=== PATIENT | female | born 1980 | race Caucasian/White ===

== ENCOUNTER 2017-05-24 05:36 | Inpatient (IN) | payer BC ==
--- NOTE | 2017-05-22 06:31 | PCM.LDHP ---
L&D History of Present Illness - General Date of Service: 05/22/17 Admit Problem/Dx: Admission Diagnosis/Problem Admission Diagnosis/Problem 05/22/17 06:20 36-year-old 2 para 1001 white female with intrauterine at 40-1 /7 weeks gestational age on day of admission admitted for elective repeat section. 05/22/17 06:20 Source of Information: Patient History Limitations: Reports: No Limitations - History of Present Illness Introduction:: History of present illness: Patient is a 36-year-old 2 para 1001 white female who is admitted for elective repeat section. Patient had a previous section for failure to progress in 2012. The procedure of repeat section, its risks, benefits, alternatives of care are discussed in detail the patient. She appears to understand and wishes to proceed. 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 Last menstrual period was fairly definite at 08/12/2016 onset. Her ultrasound dating starting with first ultrasound at 11- 1/7 weeks and again on 01/13/2017 at 22-2/7 weeks is consistent with her last menstrual period dating for final JET of 05/23/2017. Patient had menarche at age 14, cycles every 32-34 days. Previous resulted in a primary section performed on 11/30/2012 at 41 weeks gestational age after 24 hours of labor with delivery of a 7 lbs. 5 oz. male named Julian. course was relatively unremarkable. She plans to breast feed. She declined genetic testing. She had an inverted depression screening score of 0 out of 30 on 12/22/2016. Her group B strep screen was negative. All patient plan for repeat section throughout the entire . course: First visit occurred on 11/06/2016 at 10-3/7 weeks gestational age. She had a relatively unremarkable course with normal fundal height growth. Her weight gain was from 199.2 pounds 2 230 pounds for 30.8 pound weight gain. Her vital signs are stable throughout the . Laboratory testing in consisted of a blood type which was A+. Antibody screen was negative. Her initial labs showed a hemoglobin of 12.7 and platelets of 274,000. Her Pap smear was normal. She is rubella immune. RPR is nonreactive. Hepatitis B surface antigen and HIV assays were both negative. Chlamydia and gonorrhea assays both negative. Trimester laboratory testing showed a hemoglobin of 10.2 at which time patient was started on additional ferrous sulfate supplementation in the form of 325 mg tablets twice a day. Her platelet count was 249,000 and her 1 hour GTT was 111. Her group B strep screen third trimester was negative. Allergies: None Medications: 1. Ferrous sulfate 325 mg twice a day 2. Folic acid 800 g 1 daily 3. Calcium 500 mg 2 tablets daily 4. vitamins 1 tablet daily Past medical history: Infertility with use of Clomid and metformin in the past. 2. Eczema Past surgical history: 1. 2012 for failure to progress. Family history: Mother the baby's paternal cousin has Down syndrome. Patient's mom and dad are alive and well. Mom does have glaucoma but is well controlled. 2 sisters alive and well. Maternal grandmother secondary to age. Maternal grandfather also secondary to old age. Paternal grandmother secondary to kidney failure. Paternal grandfather secondary to intestinal cancer. No , clotting, bleeding or anesthesia problems noted in the family. Social history: Patient is . is Jamey Mckeon. She works at [employer]. She is a college graduate. They live in [place]. Significant alcohol, drugs or tobacco Review of systems: In general patient has no concerns. She is late and has normal changes reported Skin:eczema throughout the worsening in recent days. Lungs/respiratory: Negative Cardiovascular: No exercise intolerance or chest pain Breasts: Changes associated with only GI: Normal bowel activity : Changes so since Muscoskeletal: Negative other than occasional swelling in lower extremities Neurologic: Normal Physical exam: Evaluation in clinic weight was 230 pounds blood pressure 112/73 heart rate was 133. Her first weight was 199.2 with body mass index of 35.1. Height is 5 feet 3. In general patient is a well-developed, well-nourished, pleasant female in no acute distress. Skin is warm and dry without lesions other than the eczema reported above. HEENT, neck and back are within normal limits. Cardiovascular exam shows regular rate and rhythm without murmurs. Lungs are clear with good breath sounds in all lung soto. Breast exam is deferred. Abdomen is protuberant with with fundal height of 40 cm, baby in vertex presentation. Cervical exam is not performed on last evaluation. Extremities and neurological exam are grossly within normal limits. - Related Data Allergies/Adverse Reactions: Allergies Allergy/AdvReac Type Severity Reaction Status Date / Time No Known Allergies Allergy Verified 08/24/16 11:57 H&P Review of Systems - Review of Systems: Review Of Systems: See Below L&D Exam - Exam Exam: See Below Problem List Initiated/Reviewed/Updated: Yes Assessment/Plan Comment:: Assessment: 1. Term intrauterine at 40-1/7 weeks gestational age upon admission for elective repeat section. For done for failure to progress 2. Only risk factors for the and for surgery is history of previous section and increased weight. 3. Patient plans to breast-feed 4. Patient is group B strep negative Plan: 1. Repeat lower uterine segment transverse section through Pfannenstiel skin incision under spinal block scheduled for 05/24/2017 at 0730 hrs. The procedure, risks, benefits, follow-up of care and alternatives of care discussed in detail with patient. She appears to understand, and wishes to proceed and signed the consent. 2. DVT prophylaxis with SCDs 3. Ancef for infection prophylaxis 4. Routine preoperative laboratory testing consisting of CBC, urinalysis, type and screen.
[~2017-05-24 05:36] MED LIST: Lactated Ringers 1,000 ML IV SCH; Sodium Chloride 0.9% 10 ML Syringe FLUSH PRN
[2017-05-24] MEDS ORDERED: Metoclopramide 10 MG/2 ML SDV IVPUSH ONE (06:00)
[2017-05-24] MEDS ORDERED: Citric Acid/Sodium Citrate Solution 30 ML Cup PO ONE (06:00)
[2017-05-24] MEDS ORDERED: Bupivacaine 0.5% 30 ML SDV ONE (06:48)
[2017-05-24] MEDS ORDERED: Morphine PF 10 MG/10 ML SDV ONE (06:54)
[2017-05-24] MEDS ORDERED: Lactated Ringers 1,000 ML ONE ×2 (06:54→08:45)
[2017-05-24] MEDS ORDERED: Oxytocin 10 Units/1 ML SDV ONE (06:54)
[2017-05-24] MEDS ORDERED: ceFAZolin 1 GM Vial ONE (07:00)
[2017-05-24] MEDS ORDERED: Ondansetron 4 MG/2 ML SDV ONE (07:00)
--- NOTE | 2017-05-24 07:27 | PCM.PREANE ---
Preanesthetic Assessment - Anesthesia/Transfusion/Family Hx Anesthesia History: Prior Anesthesia Without Reaction Family History of Anesthesia Reaction: No - Review of Systems General: No Symptoms Pulmonary: No Symptoms Cardiovascular: No Symptoms Gastrointestinal: No Symptoms Neurological: No Symptoms Other: Reports: None - Physical Assessment NPO Status Date: 05/23/16 NPO Status Time: 17:30 O2 Sat by Pulse Oximetry: 97 Respiratory Rate: 16 Vital Signs: Last Vital Signs Temp 36.8 C 05/24/17 01:26 Pulse 107 H 05/24/17 01:26 Resp 16 05/24/17 01:26 BP 121/71 05/24/17 01:26 Pulse Ox 97 05/24/17 01:26 ASA Class: 2 Mental Status: Alert & Oriented x3 Airway Class: Mallampati = 1 Dentition: Reports: Normal Dentition Thyro-Mental Finger Breadths: 3 Mouth Opening Finger Breadths: 3 ROM/Head Extension: Full Lungs: Clear to Auscultation, Normal Respiratory Effort Cardiovascular: Regular Rate, Regular Rhythm - Lab Values: Reviewed Plt 229 - Allergies Allergies/Adverse Reactions: Allergies Allergy/AdvReac Type Severity Reaction Status Date / Time No Known Allergies Allergy Verified 08/24/16 11:57 - Anesthesia Plan Pre-Op Medication Ordered: Antacids - Acknowledgements Anesthesia Type Planned: Spinal Pt an Appropriate Candidate for the Planned Anesthesia: Yes Alternatives and Risks of Anesthesia Discussed w Pt/Guardian: Yes Pt/Guardian Understands and Agrees with Anesthesia Plan: Yes PreAnesthesia Questionnaire Genitourinary History: Reports: UTI, Recurrent, Other (See Below) Other Genitourinary History: on macrobid OPERATIONS ASST History: Reports: Polycystic Ovaries, Other (See Below) Other OB/BYN History: hx of metformin and clomid Psychiatric History: Reports: Depression, Other (See Below) Other Psychiatric History: WITH LAST PREG Hematologic History: Reports: Anemia Dermatologic History: Reports: Eczema, Other (See Below) Other Dermatologic History: has rash to breast area - CURRENT (IN HOUSE) MEDS Current Meds: Current Medications Cefazolin Sodium/Dextrose 2 gm (/ Premix) 50 mls @ 100 mls/hr IV ONETIME ONE Stop: 05/24/17 07:59 Lactated Ringer's (Ringers, Lactated) 1,000 mls @ 125 mls/hr IV ASDIRECTED JEREMIAH Last Admin: 05/24/17 07:13 Dose: 125 mls/hr Sodium Chloride (Saline Flush) 10 ml FLUSH ASDIRECTED PRN PRN Reason: Keep Vein Open Discontinued Medications Bupivacaine HCl (Marcaine 0.5%) Confirm Administered Dose 30 ml .ROUTE .STK-MED ONE Stop: 05/24/17 06:49 Cefazolin Sodium (Ancef) Confirm Administered Dose 2 gm .ROUTE .STK-MED ONE Stop: 05/24/17 07:01 Citric Acid/Sodium Citrate (Bicitra Solution) 30 ml PO ONETIME ONE Stop: 05/24/17 06:01 Last Admin: 05/24/17 07:13 Dose: 30 ml Lactated Ringer's (Ringers, Lactated) Confirm Administered Dose 1,000 mls @ as directed .ROUTE .[facility]-MED ONE Stop: 05/24/17 06:55 Metoclopramide HCl (Reglan) 10 mg IVPUSH ONETIME ONE Stop: 05/24/17 06:01 Last Admin: 05/24/17 07:14 Dose: 10 mg Morphine Sulfate (Duramorph Pf) Confirm Administered Dose 10 mg .ROUTE .STK-MED ONE Stop: 05/24/17 06:55 Ondansetron HCl (Zofran) Confirm Administered Dose 4 mg .ROUTE .ST-MED ONE Stop: 05/24/17 07:01 Oxytocin (Pitocin) Confirm Administered Dose 20 unit .ROUTE .STK-MED ONE Stop: 05/24/17 06:55
[2017-05-24] MEDS ORDERED: ceFAZolin 2 GM in Premix Bag 1 BAG IV ONE (07:30)
[2017-05-24] MEDS ORDERED: Ondansetron 4 MG/2 ML SDV IVPUSH PRN (08:36)
[2017-05-24] MEDS ORDERED: ePHEDrine 50 MG/ML SDV IVPUSH PRN ×2 (08:36→08:40)
[2017-05-24] MEDS ORDERED: diphenhydrAMINE 50 MG/ML SDV IVPUSH PRN ×2 (08:36→08:40)
[2017-05-24] MEDS ORDERED: Lanolin 100% Cream 7 GM Tube TOP PRN (08:40)
[2017-05-24] MEDS ORDERED: Ondansetron 4 MG/2 ML SDV IV PRN (08:40)
[2017-05-24] MEDS ORDERED: Naloxone 0.4 MG/ML SDV IVPUSH PRN (08:40)
[2017-05-24] MEDS ORDERED: Docusate Sodium 100 MG Cap PO PRN (08:40)
[2017-05-24] MEDS ORDERED: Ketorolac 30 MG/ML SDV ONE (08:45)
--- NOTE | 2017-05-24 08:53 | PCM.POSTAN ---
POST ANESTHESIA ASSESSMENT - MENTAL STATUS Mental Status: Alert, Oriented - VITAL SIGNS Pulse Rate: 80 SaO2: 100 Resp Rate: 18 Blood Pressure: 102/64 Temperature: 97.9 C - RESPIRATORY Respiratory Status: Respiratory Rate WNL, Airway Patent, O2 Saturation Stable - CARDIOVASCULAR CV Status: Pulse Rate WNL, Blood Pressure Stable - GASTROINTESTINAL GI Status: No Symptoms - PAIN Pain Score: 0 - POST OP HYDRATION Hydration Status: Adequate & Stable
[2017-05-24] MEDS ORDERED: Nitrofurantoin Monohydrate/Macrocrystalline 100 MG Cap PO SCH (09:00)
[2017-05-24] MEDS ORDERED: diphenhydrAMINE/Zinc Acetate 1% Crm 28.3 GM Tube TOP PRN (10:00)
[2017-05-24] MEDS ORDERED: Calamine/Zinc Oxide Lotion 118 ML Bottle TOP PRN (10:00)
[2017-05-24] MEDS: NITROFURANTOIN 100 MG PO SCH ×2 (10:52→21:57)
[2017-05-24] MEDS: Simethicone 80 MG Tab.Chew PO SCH ×4 (10:53→21:56)
[2017-05-24] MEDS: Prenatal Multivitamin with Calcium/Folic Acid/Iron Tab PO SCH (10:53)
[2017-05-24] MEDS ORDERED: Lactated Ringers 1,000 ML IV SCH (11:45)
[2017-05-24] MEDS ORDERED: Fluconazole 150 MG Tab PO ONE (12:00)
[2017-05-24] MEDS: Ibuprofen 800 MG Tab PO SCH (15:05)
[2017-05-24] MEDS: Acetaminophen/oxyCODONE 325-5 MG Tab PO PRN (20:35)
[2017-05-25] MEDS: Ibuprofen 800 MG Tab PO SCH ×4 (00:17→22:52)
[2017-05-25] MEDS: Acetaminophen/oxyCODONE 325-5 MG Tab PO PRN ×3 (05:43→20:57)
--- NOTE | 2017-05-25 08:52 | PCM48HPAN ---
Post Anesthesia Note - EVALUATION WITHIN 48HRS OF ANESTHETIC Vital Signs in Normal Range: Yes Patient Participated in Evaluation: Yes Respiratory Function Stable: Yes Airway Patent: Yes Cardiovascular Function Stable: Yes Hydration Status Stable: Yes Pain Control Satisfactory: Yes Nausea and Vomiting Control Satisfactory: Yes Mental Status Recovered: Yes - COMMENTS/OBSERVATIONS Free Text/Narrative:: Patient denied any headache, residual numbness/tingling to lower extremities, or back pain.
[2017-05-25] MEDS: Simethicone 80 MG Tab.Chew PO SCH ×4 (09:42→22:52)
[2017-05-25] MEDS: Prenatal Multivitamin with Calcium/Folic Acid/Iron Tab PO SCH (09:42)
[2017-05-25] MEDS: NITROFURANTOIN 100 MG PO SCH ×2 (09:42→21:03)
--- NOTE | 2017-05-25 10:47 | PCM.SN ---
- Free Text/Narrative Note: Postoperative day 2: Patient is doing well. Pain is minimal. She is ambulating well, has voided without concerns and is breast-feeding without problems. Vital signs are stable, patient is afebrile. CBC is pending. Lungs are clear with good breath sounds in all lung soto. Cardiovascular exam shows regular rate and rhythm without murmurs. Abdomen is flat, soft and uterus at the umbilicus. Positive bowel sounds are noted. Incision appears dry and intact with PRINE0 in place. Legs are nontender with only minimal edema bilateral lower extremities. Assessment: Postoperative day one doing well. Plan: Await CBC results. Routine postoperative care. Possibly home on second postoperative day.
--- NOTE | 2017-05-26 06:15 | PCM.OPNOTE ---
- General Post-Op/Procedure Note Date of Surgery/Procedure: 05/26/17 Operative Procedure(s): Repeat lower uterine segment transverse section through Pfannenstiel skin incision Findings: Tubes and ovaries were consistent with a term . No significant scarring was noted. Baby is in a vertex presentation. Amniotic fluid was clear. Placenta appeared intact and complete and was expressed in a Debbie presentation. Umbilical cord had 3 vessels. Cervix was dilated to approximately 2 cm-adequate to allow egress of blood. All abnormalities were noted. An segment was approximately 5 mm thick. Pre Op Diagnosis: Term intrauterine at 40 weeks, history of previous section with desire for repeat section Post-Op Diagnosis: Same with delivery of a viable, 3487 g (7 pound 11.0) female with Apgars of 9 and 9, a length of 20.5 inches born at 0804 hrs. on 05/24. Anesthesia Technique: Local, Spinal Primary Surgeon: Alvarez Samuels Secondary Surgeon: Hussain Caceres Anesthesia Provider: maribel Complications: None Condition: Good Free Text/Narrative:: Intake & Output 05/25/17 05/25/17 05/26/17 14:59 22:59 06:59 Intake Total 840 Output Total 350 Balance 490 Procedure:Patient was transferred the room and placed in a sitting position. Spinal anesthesia was administered. After confirmation of adequate anesthesia patient was placed in a supine position with a wedge under her right side to facilitate left lateral positioning. The patient was prepped and draped in usual fashion after Calles catheter was already placed . The anesthetic was checked and found to be adequate. The Pfannenstiel skin incision was then made through the old Pfannenstiel incision scar and carried down to skin subcutaneous and fascial layers. The fascia was then undermined superiorly and inferiorly to allow for adequate operating room the recti muscles midline and preperitoneal fat was bluntly dissected. Peritoneal cavity was entered longitudinally. The vesicouterine peritoneum was then incised transversely and bladder flap was developed. Myometrium was incised transversely to the level of the amniotic sac. This incision was extended bilaterally in a blunt fashion. The amniotic sac was then ruptured resulting clear amniotic fluid. A hand is placed and low uterine segment and the baby's head was brought forth through the incision. The baby was completely delivered using fundal pressure in a routine fashion. The nose and mouth were bulb suctioned. Bays cord was clamped x2 cut and baby was handed off to attending blade changer Dr Duggan. Placenta was expressed after cord blood was obtained. Uterus was then exteriorized to allow for easier closure. The cervix was assessed and found to be dilated adequately to allow egress of blood. The uterus was closed in 2 layers. The first layer a running locked suture of 0 Monocryl, the second layer a running locked vertical mattress suture of 0 Monocryl. [id number] suture was placed at the left incision to control 1 bleeder. Hemostasis confirmed at this time. Sponge instrument needle counts are correct. The uterus was returned to the abdominal cavity and lateral gutters were cleared of blood. Once again sponge needle counts are correct. The anterior abdominal wall was closed with a #1 PDS suture from angle to angle. The subcutaneous area was found to be free of any bleeders. Skin was closed with a running subcuticular stitch of 3-0 Monocryl in a vertical mattress suture fashion using a Catrachito needle. Prineo mesh/glue was then applied to further approximate the incision. It should be noted that patient received 2 g of Ancef preoperatively for infection prophylaxis and had Pitocin infused after delivery of the placenta to facilitate uterine contraction. She also had sequential compression stockings in place for DVT prophylaxis. Patient was discharged from the operating room in satisfactory condition.
--- NOTE | 2017-05-26 06:21 | PCM.DCSUM1 ---
Discharge Summary - Hospital Course Free Text/Narrative:: Magalys is a 36-year-old 2 now para 2002 white female who was admitted on 05/24/2017 for elective repeat section. Please see admission history and physical for details. Patient delivered a viable, benites, 3487 g (7 pounds 11.0 ounce 6), 20.5 inch long female infant at 0804 hrs. on 05/24/2017. At Apgars of 9 and 9. Postoperatively pain was controlled with Duramorph through spinal block along with ibuprofen and after 24 hours reset was added. She made good bowel, bladder and ambulatory recovery. She is nursing without problems. She has minimal lochia and is voiding well. Vital signs and stable. Follow-up CBC has shown a decrease in hemoglobin to 8.6. Estimated blood loss at time of surgery was 750 mL. He is doing well with this however and is not have any clinical symptoms of anemia. The patient is desiring at this time to be discharged home. - Discharge Data Discharge Date: 05/26/17 Discharge Disposition: Home, Self-Care 01 Condition: Good - Patient Summary/Data Operative Procedure(s) Performed: Repeat lower uterine segment transverse section through Pfannenstiel skin incision - Patient Instructions Diet: Regular Diet as Tolerated (Nursing diet with increase calories and calcium ) Activity: As Tolerated (No lifting greater than 15 pounds, taking a bath or driving a car 1 week, thereafter made bays, drive or morning and 15 pounds.) Driving: Do Not Drive Wound/Incision Care: Keep Operative Site/Wound Site Clean and Dry (Remove incision mesh in 2 weeks by using Vaseline or petroleum jelly) Notify Provider of: Fever, Increased Pain, Swelling and Redness, Drainage, Nausea and/or Vomiting - Discharge Plan Prescriptions/Med Rec: Fluconazole [Diflucan] 150 mg PO ONETIME #1 tablet Home Medications: Home Meds Calcium Carbonate [Calcium] 600 mg PO DAILY 05/24/17 [History] Ferrous Sulfate [Iron] 325 mg PO DAILY 05/24/17 [History] Nitrofurantoin Edwards/Macrocryst [Macrobid] 100 mg PO BID 05/24/17 [History] PNV95/Ferrous Fumarate/FA [ Tablet] 1 each PO DAILY 05/24/17 [History] Acetaminophen/oxyCODONE [Percocet 325-5 MG] 2 tab PO Q4H PRN #30 tablet [Rx] Fluconazole [Diflucan] 150 mg PO ONETIME #1 tablet 05/26/17 [Rx] Ibuprofen [IJD: Ibuprofen] 800 mg PO Q8H tablet 05/26/17 [Rx] Referrals: Alvarez Samuels MD [Physician] - [facility] - Discharge Summary/Plan Comment DC Time >30 min.: No Discharge Summary/Plan Comment: Discharge instructions: 1. Discharge home, activity and follow-up discussed with patient 2. Regular, high fiber, nursing diet with increased calcium and calories as recommended 3. Medications per home medication was printed, discussed with them given to the patient. 4. Cautions given concern increased pain, bleeding, temperature, signs/symptoms of DVT/PE. [facility]. [facility] Diagnosis: 40 week , history of previous section with desire for repeat section-delivered by section Condition: Good - Patient Data Vitals - Most Recent: Last Vital Signs Temp 36.2 C 05/25/17 20:00 Pulse 100 05/25/17 20:00 Resp 15 05/25/17 20:00 BP 128/86 05/25/17 20:00 Pulse Ox 97 05/25/17 20:00 Weight - Most Recent: 102.965 kg I&O - Last 24 hours: Intake & Output 05/25/17 05/25/17 05/26/17 14:59 22:59 06:59 Intake Total 840 Output Total 350 Balance 490 Lab Results - Last 24 hrs: Laboratory Results - last 24 hr 05/25/17 Range/Units 05:30 Manual Slide Review Abnormal smear Med Orders - Current: Current Medications Calamine/Zinc Oxide (Calamine Lotion) 0 ml TOP Q4H PRN PRN Reason: Rash Diphenhydramine HCl (Benadryl) 25 mg IVPUSH Q6H PRN PRN Reason: Pruritis Diphenhydramine HCl (Benadryl) 25 mg IVPUSH Q6H PRN PRN Reason: Itching or Nausea Docusate Sodium (Colace) 100 mg PO Q12H PRN PRN Reason: Constipation Emollient Ointment (Lansinoh Hpa) 0 gm TOP ASDIRECTED PRN PRN Reason: Sore Nipples Ephedrine Sulfate (Ephedrine Sulfate) 5 mg IVPUSH ASDIRECTED PRN PRN Reason: Hypotension Ephedrine Sulfate (Ephedrine Sulfate) 5 mg IVPUSH SEECOMMENT PRN PRN Reason: Other Fluconazole (Diflucan) 150 mg PO ONETIME ONE Stop: 05/27/17 09:01 Lactated Ringer's (Ringers, Lactated) 1,000 mls @ 125 mls/hr IV ASDIRECTED [facility] Last Admin: 05/24/17 11:54 Dose: 125 mls/hr Ibuprofen (Motrin) 800 mg PO Q8H [facility] Last Admin: 05/25/17 22:52 Dose: 800 mg Naloxone HCl (Narcan) 0.1 mg IVPUSH SEECOMMENT PRN PRN Reason: Respiratory Depression Nitrofurantoin Macrocrystals (Macrobid) 0 mg PO BID [facility] Last Admin: 05/25/17 21:03 Dose: 100 mg Ondansetron HCl (Zofran) 4 mg IVPUSH ONETIME PRN PRN Reason: Nausea/Vomiting Ondansetron HCl (Zofran) 4 mg IV Q4H PRN PRN Reason: Nausea/Vomiting Oxycodone/Acetaminophen (Percocet 325-5 Mg) 2 tab PO Q4H PRN PRN Reason: Pain (moderate 4-6) Last Admin: 05/25/17 20:57 Dose: 1 tab Prenat Multivit/Canal Boat Operator/Iron/Folic Ac ( Plus Iron) 1 each PO DAILY [facility] Last Admin: 05/25/17 09:42 Dose: 1 each Simethicone (Simethicone) 80 mg PO PCBED [facility] Last Admin: 05/25/17 22:52 Dose: 80 mg Zinc Acetate/Diphenhydramine (Benadryl Itch Stopping Crm) 0 gm TOP Q4H PRN PRN Reason: Rash Discontinued Medications Bupivacaine HCl (Marcaine 0.5%) Confirm Administered Dose 30 ml .ROUTE .STK-MED ONE Stop: 05/24/17 06:49 Last Admin: 05/24/17 08:00 Dose: 20 ml Cefazolin Sodium (Ancef) Confirm Administered Dose 2 gm .ROUTE .STK-MED ONE Stop: 05/24/17 07:01 Citric Acid/Sodium Citrate (Bicitra Solution) 30 ml PO ONETIME ONE Stop: 05/24/17 06:01 Last Admin: 05/24/17 07:13 Dose: 30 ml Fluconazole (Diflucan) 150 mg PO ONETIME ONE Stop: 05/24/17 12:01 Last Admin: 05/24/17 11:55 Dose: 150 mg Cefazolin Sodium/Dextrose 2 gm (/ Premix) 50 mls @ 100 mls/hr IV ONETIME ONE Stop: 05/24/17 07:59 Last Admin: 05/24/17 08:39 Dose: Not Given Lactated Ringer's (Ringers, Lactated) 1,000 mls @ 125 mls/hr IV ASDIRECTED JEREMIAH Last Admin: 05/24/17 07:13 Dose: 125 mls/hr Lactated Ringer's (Ringers, Lactated) Confirm Administered Dose 1,000 mls @ as directed .ROUTE .STK-MED ONE Stop: 05/24/17 06:55 Lactated Ringer's (Ringers, Lactated) Confirm Administered Dose 1,000 mls @ as directed .ROUTE .STK-MED ONE Stop: 05/24/17 08:46 Ketorolac Tromethamine (Toradol) Confirm Administered Dose 30 mg .ROUTE .STK- MED ONE Stop: 05/24/17 08:46 Metoclopramide HCl (Reglan) 10 mg IVPUSH ONETIME ONE Stop: 05/24/17 06:01 Last Admin: 05/24/17 07:14 Dose: 10 mg Morphine Sulfate (Duramorph Pf) Confirm Administered Dose 10 mg .ROUTE .STK-MED ONE Stop: 05/24/17 06:55 Ondansetron HCl (Zofran) Confirm Administered Dose 4 mg .ROUTE .STK-MED ONE Stop: 05/24/17 07:01 Oxytocin (Pitocin) Confirm Administered Dose 20 unit .ROUTE .STK-MED ONE Stop: 05/24/17 06:55 Sodium Chloride (Saline Flush) 10 ml FLUSH ASDIRECTED PRN PRN Reason: Keep Vein Open *Q Meaningful Use (DIS) - VTE *Q VTE Criteria *Q: - Stroke *Q Stroke Criteria *Q: - AMI *Q AMI Criteria *Q:
[2017-05-26] MEDS: Ibuprofen 800 MG Tab PO SCH ×2 (07:09→15:28)
[2017-05-26] MEDS: Prenatal Multivitamin with Calcium/Folic Acid/Iron Tab PO SCH (08:34)
[2017-05-26] MEDS: Simethicone 80 MG Tab.Chew PO SCH ×2 (08:34→13:22)
[2017-05-26] MEDS: NITROFURANTOIN 100 MG PO SCH (08:39)
[2017-05-26 14:07] VITALS: BP 127/78
[2017-05-27] MEDS ORDERED: Fluconazole 150 MG Tab PO ONE (09:00)
== END 2017-05-26 16:25 | disposition home or self-care (01) | DRG 540 ==
LOC: JD.OB 05:36
PROVIDERS: ADMIT Obstetrics & Gynecology; ATTEND Obstetrics & Gynecology
PROC: 10D00Z1 Extraction of Products of Conception, Low, Open Approach (ICD-10-PCS; principal; 2017-05-24)
DX: O34.211 Maternal care for low transverse scar from previous cesarean delivery (principal); N85.8 Other specified noninflammatory disorders of uterus; Z3A.40 40 weeks gestation of pregnancy; Z37.0 Single live birth
CPT/HCPCS: 01961; 36415; 85025; 94762; A9270-GY; J0690; J1885; J2270; J2405; J2590; J2765; J7120